=== PATIENT | male | born 1980 | race Caucasian/White ===

== ENCOUNTER → 2016-06-08 | Outpatient (CLI) | payer OTHER ==
--- NOTE | 2016-06-08 16:15 | CR ---
EXAMINATION: Two-view chest (PA and Lateral views). HISTORY: Pain. FINDINGS: The trachea is midline. The cardiomediastinal silhouette is within normal limits. No pulmonary infil trates, effusions or pneumothorax. Osseous structures appear unremarkable. IMPRESSION: No acute cardiopulmonary process.
== END ==
LOC: MW.CHFP 15:52
PROVIDERS: ATTEND Nurse Practitioner Family
DX: R07.81 Pleurodynia (principal); R05 Cough; Z87.01 Personal history of pneumonia (recurrent)
CPT/HCPCS: 71020; 71020-26

== ENCOUNTER 2018-10-04 05:31 | Emergency (ER) | payer BC ==
[2018-10-04] MEDS ORDERED: Sodium Chloride 0.9% 2.5 ML Syringe FLUSH PRN (05:53)
[2018-10-04] MEDS ORDERED: Sodium Chloride 0.9% 10 ML Syringe FLUSH PRN (05:53)
[2018-10-04] MEDS ORDERED: Sodium Chloride 0.9% 1,000 ML IV ONE (05:53)
[2018-10-04] MEDS ORDERED: Ondansetron 4 MG/2 ML SDV IVPUSH ONE (05:53)
[2018-10-04] MEDS ORDERED: methylPREDNISolone Sodium Succinate 125 MG/2 ML SDV IVPUSH ONE (06:20)
--- NOTE | 2018-10-04 06:35 | EDM.PDOC ---
<Rajat Koroma - Last Filed: 10/04/18 06:43> ED HPI GENERAL MEDICAL PROBLEM - General Chief Complaint: General Stated Complaint: VERTIGO, VOMITING, DIARRHEA Time Seen by Provider: 10/04/18 05:50 - History of Present Illness INITIAL COMMENTS - FREE TEXT/NARRATIVE: HISTORY AND PHYSICAL: History of present illness: 38 year old female with no significant past medical history presents to the ER accompanied by her for the evaluation of new onset vertigo, nausea & vomiting. The patient was in her normal state of health prior to going to bed last evening. At approximately 0400, the patient was awoken from a sleep as a result of feeling as the room was spinning. The patient opened her eyes and this only worsened her symptom. She immediately went to the rest room and had an episode of emesis and diarrhea. Since 4 am the patient has had 5 episodes vomiting. The patient informs me she feels week and shaky. She has never experienced this before in the past. The patient denies any anterior chest pain, shortness of breath, heart palpitations or loss consciousness. Review of systems: As per history of present illness and below otherwise all systems reviewed and negative. Past medical history: As per history of present illness and as reviewed below otherwise noncontributory. Surgical history: As per history of present illness and as reviewed below otherwise noncontributory. Social history: No reported history of drug or alcohol abuse. Family history: As per history of present illness and as reviewed below otherwise noncontributory. Physical exam: Constintuational: Well nourished, well developed, tearful HEENT: Atraumatic, normocephalic, pupils reactive, with examination of field of gaze their was no nystagmus however, the patient became tearful and expressed lateral eye movement resulted in nausea and her hands began to shake. Lungs: Clear to auscultation, breath sounds equal bilaterally, chest nontender. Heart: S1S2, regular, negative for clicks, rubs, or JVD. Abdomen: Soft, nondistended, nontender. Negative for masses or hepatosplenomegaly. Negative for costovertebral tenderness. Pelvis: Stable nontender. Genitourinary: Deferred. Rectal: Deferred. Extremities: Atraumatic, negative for cords or calf pain. Neurovascular unremarkable. Neuro: Awake, alert, oriented. Following commands appropriately. Non focal Diagnostics: CMP, CBC, CT of Head Therapeutics: 1 L 0.9 NS Bolus Zofran Solumedrol IV Impression: Acute Dizziness Probable BPH Plan: Definitive disposition and diagnosis as appropriate pending reevaluation and review of above. no pain Pain Score (Numeric/FACES): 0 - Related Data Allergies Allergy/AdvReac Type Severity Reaction Status Date / Time amoxicillin Allergy Hives Verified 10/04/18 05:49 Home Meds: Home Meds . 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 Musculoskeletal History: broken Left arm Neurological History: Reports: None Psychiatric History: Reports: None Endocrine/Metabolic History: Reports: None Hematologic History: Reports: None Oncologic (Cancer) History: Reports: None Dermatologic History: Reports: None - Infectious Disease History Infectious Disease History: Reports: None - Past Surgical History HEENT Surgical History: Reports: Tonsillectomy Female Surgical History: Reports: Section, Oophorectomy, Tubal Ligation Social & Family History - Family History Family Medical History: Noncontributory - Tobacco Use Smoking Status *Q: Never Smoker - Recreational Drug Use Recreational Drug Use: No Course - Vital Signs Last Recorded V/S: Last Vital Signs Temp 35.9 C 10/04/18 05:49 Pulse 66 10/04/18 07:37 Resp 18 10/04/18 07:37 BP 115/64 10/04/18 07:37 Pulse Ox 100 10/04/18 07:37 - Orders/Labs/Meds Orders: Active Orders 24 hr Category Date Time Status EKG Documentation Completion [RC] STAT Care 10/04/18 05:52 Active Saline Lock Insert [OM.PC] Stat Oth 10/04/18 05:52 Ordered Labs: Laboratory Tests 10/04/18 10/04/18 Range/Units 05:55 05:55 WBC 7.99 (4.0-11.0) K/uL RBC 4.78 (4.30-5.90) M/uL Hgb 10.2 L (12.0-16.0) g/dL Hct 33.6 L (36.0-46.0) % MCV 70.3 L (80.0-98.0) fL MCH 21.3 L (27.0-32.0) pg MCHC 30.4 L (31.0-37.0) g/dL RDW Std Deviation 41.4 (28.0-62.0) fl RDW Coeff of Slim 16 H (11.0-15.0) % Plt Count 272 (150-400) K/uL MPV 10.90 (7.40-12.00) fL Neut % (Auto) 62.9 (48.0-80.0) % Lymph % (Auto) 30.0 (16.0-40.0) % Alfalfa % (Auto) 5.5 (0.0-15.0) % Eos % (Auto) 1.3 (0.0-7.0) % Baso % (Auto) 0.3 (0.0-1.5) % Neut # (Auto) 5.0 (1.4-5.7) K/uL Lymph # (Auto) 2.4 (0.6-2.4) K/uL Alfalfa # (Auto) 0.4 (0.0-0.8) K/uL Eos # (Auto) 0.1 (0.0-0.7) K/uL Baso # (Auto) 0.0 (0.0-0.1) K/uL Nucleated RBC % 0.0 /100WBC Nucleated RBCs # 0 K/uL Sodium 141 (136-145) mmol/L Potassium 3.1 L (3.5-5.1) mmol/L Chloride 105 (98-107) mmol/L Carbon Dioxide 24.8 (21.0-32.0) mmol/L BUN 11 (7.0-18.0) mg/dL Creatinine 0.6 (0.6-1.0) mg/dL Est Cr Clr Drug Dosing 96.87 mL/min Estimated GFR (MDRD) > 60.0 ml/min Glucose 120 H (74-106) mg/dL Calcium 8.6 (8.5-10.1) mg/dL Total Bilirubin 0.6 (0.2-1.0) mg/dL AST 29 (15-37) IU/L ALT 47 (14-63) IU/L Alkaline Phosphatase 87 (46-116) U/L Total Protein 7.5 (6.4-8.2) g/dL Albumin 3.5 (3.4-5.0) g/dL Globulin 4.0 (2.6-4.0) g/dL Albumin/Globulin Ratio 0.9 (0.9-1.6) Meds: Medications Discontinued Medications Generic Name Dose Route Start Last Admin Trade Name Freq PRN Reason Stop Dose Admin Diazepam 0.5 mg 10/04/18 06:26 Valium IVPUSH 10/04/18 06:27 ONETIME ONE Sodium Chloride 1,000 mls @ 999 mls/hr 10/04/18 05:53 10/04/18 06:06 Normal Saline IV 10/04/18 06:53 999 mls/hr STAT ONE Administration Methylprednisolone Sodium Succinate 125 mg 10/04/18 06:20 10/04/18 06:53 Solu-Medrol IVPUSH 10/04/18 06:21 125 mg ONETIME ONE Administration Ondansetron HCl 4 mg 10/04/18 05:53 10/04/18 06:06 Zofran IVPUSH 10/04/18 05:54 4 mg ONETIME ONE Administration Sodium Chloride 10 ml 10/04/18 05:53 Saline Flush FLUSH ASDIRECTED PRN Keep Vein Open Sodium Chloride 2.5 ml 10/04/18 05:53 Saline Flush FLUSH ASDIRECTED PRN Keep Vein Open Departure - Departure Disposition: Home, Self-Care 01 Clinical Impression: Dizziness, Vertigo - Discharge Information Instructions: Vertigo, [id number], Dizziness, [id number] Referrals: Romi Barrera WAREHOUSE CONSULTANT [Primary Care Provider] - Forms: ED Department Discharge Additional Instructions: The following information is given to patients seen in the emergency department who are being discharged to home. This information is to outline your options for follow-up care. We provide all patients seen in our emergency department with a follow-up referral. The need for follow-up, as well as the timing and circumstances, are variable depending upon the specifics of your emergency department visit. If you don't have a primary care physician on staff, we will provide you with a referral. We always advise you to contact your personal physician following an emergency department visit to inform them of the circumstance of the visit and for follow-up with them and/or the need for any referrals to a consulting specialist. The emergency department will also refer you to a specialist when appropriate. This referral assures that you have the opportunity for followup care with a specialist. All of these measure are taken in an effort to provide you with optimal care, which includes your followup. Under all circumstances we always encourage you to contact your private physician who remains a resource for coordinating your care. When calling for followup care, please make the office aware that this follow-up is from your recent emergency room visit. If for any reason you are refused follow-up, please contact the [facility] emergency department at and ask to speak to the emergency department charge nurse. [facility] Primary care- [place] [address] Push hydration and use medications as prescribed for nausea and vomiting and start the Medrol Dosepak tomorrow. The Antivert you have been given sometimes can help cool the inner ear as we discussed and you may use that as you choose. Connect with your provider in the clinic or one of ours for further care and evaluation and return to ER as needed and as discussed - My Orders Last 24 Hours: My Active Orders 10/04/18 05:52 EKG Documentation Completion [RC] STAT Saline Lock Insert [OM.PC] Stat - Assessment/Plan Last 24 Hours: My Active Orders 10/04/18 05:52 EKG Documentation Completion [RC] STAT Saline Lock Insert [OM.PC] Stat <Ericka Swift - Last Filed: 10/05/18 01:56> ED HPI GENERAL MEDICAL PROBLEM - History of Present Illness INITIAL COMMENTS - FREE TEXT/NARRATIVE: This is Dr. Swift dictating addendum note as I'm the supervising physician on this case. I agree with history and physical as above and the patient a complete normal day yesterday and was asleep when the symptoms started. She has no prior history of vertigo dizziness or any motion sickness and currently in the ED she prefers to keep her head very still and she says this minimizes the symptoms. She is not currently nauseated and she has no other weakness numbness or tingling to her body no recent head trauma no headache no sinus issues her seasonal allergies. Workup is ordered as above and medications as above as well. I discussed with her at length that there is no one medication that is a solution for an acute episode of vertigo and that she needs to push hydration manage the nausea and vomiting and allow time to work. I have given her Zofran and Antivert and a Medrol Dosepak for home and have advised her for close follow -up with her provider in the clinic. We will follow-up all testing as available and endorse any further testing to the oncoming provider Dr. eRynoso as necessary. She can reevaluate and disposition pending those results. ED ROS GENERAL - Review of Systems Review Of Systems: ROS reveals no pertinent complaints other than HPI. ED EXAM, GENERAL - Physical Exam Exam: See Below (see Dictation) Course - Orders/Labs/Meds Labs: Laboratory Tests 10/04/18 10/04/18 Range/Units 05:55 05:55 WBC 7.99 (4.0-11.0) K/uL RBC 4.78 (4.30-5.90) M/uL Hgb 10.2 L (12.0-16.0) g/dL Hct 33.6 L (36.0-46.0) % MCV 70.3 L (80.0-98.0) fL MCH 21.3 L (27.0-32.0) pg MCHC 30.4 L (31.0-37.0) g/dL RDW Std Deviation 41.4 (28.0-62.0) fl RDW Coeff of Slim 16 H (11.0-15.0) % Plt Count 272 (150-400) K/uL MPV 10.90 (7.40-12.00) fL Neut % (Auto) 62.9 (48.0-80.0) % Lymph % (Auto) 30.0 (16.0-40.0) % Alfalfa % (Auto) 5.5 (0.0-15.0) % Eos % (Auto) 1.3 (0.0-7.0) % Baso % (Auto) 0.3 (0.0-1.5) % Neut # (Auto) 5.0 (1.4-5.7) K/uL Lymph # (Auto) 2.4 (0.6-2.4) K/uL Alfalfa # (Auto) 0.4 (0.0-0.8) K/uL Eos # (Auto) 0.1 (0.0-0.7) K/uL Baso # (Auto) 0.0 (0.0-0.1) K/uL Nucleated RBC % 0.0 /100WBC Nucleated RBCs # 0 K/uL Sodium 141 (136-145) mmol/L Potassium 3.1 L (3.5-5.1) mmol/L Chloride 105 (98-107) mmol/L Carbon Dioxide 24.8 (21.0-32.0) mmol/L BUN 11 (7.0-18.0) mg/dL Creatinine 0.6 (0.6-1.0) mg/dL Est Cr Clr Drug Dosing 96.87 mL/min Estimated GFR (MDRD) > 60.0 ml/min Glucose 120 H (74-106) mg/dL Calcium 8.6 (8.5-10.1) mg/dL Total Bilirubin 0.6 (0.2-1.0) mg/dL AST 29 (15-37) IU/L ALT 47 (14-63) IU/L Alkaline Phosphatase 87 (46-116) U/L Total Protein 7.5 (6.4-8.2) g/dL Albumin 3.5 (3.4-5.0) g/dL Globulin 4.0 (2.6-4.0) g/dL Albumin/Globulin Ratio 0.9 (0.9-1.6) Departure - Departure Time of Disposition: 07:30 Condition: Good
[2018-10-04 06:37] LABS: CHLORIDE,CL 105 mmol/L (98-107); SODIUM,NA 141 mmol/L (136-145)
--- NOTE | 2018-10-04 07:12 | CT ---
INDICATION: Vertigo, dizzy, nausea TECHNIQUE: CT head without contrast. COMPARISON: None FINDINGS: CSF spaces: Within normal limits for age. Brain parenchyma: The trivedi-white differentiation is normal. No sign of mass, hemorrhage, or midline shift. Skull base and calvarium: The visualized paranasal sinuses and mastoid air cells demonstrate no acute or significant findings. The visualized orbits are grossly unremarkable. No skull fractures. IMPRESSION: Unremarkable noncontrast head CT. Please note that all CT scans at this facility use dose modulation, iterative reconstruction, and/or weight-based dosing when appropriate to reduce radiation dose to as low as reasonably achievable. Dictated by Zora Williamson MD @ Oct 04 2018 7:09AM Signed by Dr. Zora Williamson @ Oct 04 2018 7:10AM
== END 2018-10-04 07:37 | disposition home or self-care (01) ==
LOC: MW.ED 05:31
DX: R42 Dizziness and giddiness (principal); R11.2 Nausea with vomiting, unspecified; R19.7 Diarrhea, unspecified; Z98.890 Other specified postprocedural states; Z98.51 Tubal ligation status; Z88.1 Allergy status to other antibiotic agents
CPT/HCPCS: 36415; 70450; 80053; 85025; 93005; 96361; 96374; 96375; 99284; J2405; J2930; J7040